=== PATIENT | female | born 1975 | race Caucasian/White ===

== ENCOUNTER 2021-07-02 06:19 | Day surgery (SDC) | payer OTHER ==
[~2021-07-02 06:19] MED LIST: FERRLECIT62.5 MG/2 IV
[2021-07-02] MEDS ORDERED: MORGIDOX100 MG PO (19:25)
[2021-07-02] MEDS ORDERED: IBU600 MG PO (19:26)
== END 2021-07-02 23:15 | disposition home or self-care (01) ==
LOC: CIR.AMB 06:19
PROVIDERS: ATTEND Obstetrics & Gynecology
DX: N84.0 Polyp of corpus uteri (principal); Z88.2 Allergy status to sulfonamides; J45.909 Unspecified asthma, uncomplicated